=== PATIENT | male | born 1940 | race Caucasian/White ===

== ENCOUNTER 2023-04-17 02:13 | Inpatient (IN) ==
--- NOTE | 2023-04-17 02:23 | EKG ---
Test Reason : SHORT OF BREATH Blood Pressure : */* mmHG Vent. Rate : 98 BPM Atrial Rate : 98 BPM P-R Int : 210 ms QRS Dur : 86 ms QT Int : 352 ms P-R-T Axes : 79 18 72 degrees QTc Int : 449 ms Sinus rhythm with 1st degree AV block Anterior infarct , age undetermined Abnormal ECG No previous ECGs available Confirmed by Gilberto Black ([id number]) on 04/17/2023 8:38:38 AM Referred By: Confirmed By: Gilberto Black
[2023-04-17 02:29] VITALS: BMI 25.2
--- NOTE | 2023-04-17 02:47 | DR.SOBA ---
HPI Time Seen Time Seen by Provider: 04/17/23 02:44 Primary Care Physician Primary Care Physician: JIE Hartman Chief Complaint Doctors Comments: SOB THAT HAS GOTTEN WORSE OVER PAST 2 DAYS.QUIT SMOKING 15 YEARS AGO. Chief Complaint:: PT IN ED VIA STRETCHER PER [facility] WITH C/O SHORTNESS OF BREATH AND GETTING WORSE FOR A COUPLE OF PRIOR TO ARRIVAL. PT COUGHING UP WHITE SPUTUM. RALES NOTED WITH PERIPHERAL EDEMA. COVID-19 Coronavirus risk:travel/contact w/high risk person: No Has patient experienced Coronavirus symptoms: No Source History Provided: Patient Mode of Arrival Mode of Arrival: Stretcher Timing Onset of Chief Complaint: 04/17/23 PMH PMH Past Medical History: Yes Past Medical History: Arthritis, Asthma, COPD, Dyslipidemia and Hypertension Past Medical History Comment: BLOCKED CAROTID ARTERIES Past Surgical History: Yes Surgical History: Ortho Surgery Past Surgical History Comment: RIGHT ARM Family History History of Family Medical Conditions: Yes Family Medical History: Cancer Social History Does patient currently use any type of tobacco product: No Have you used tobacco products in the last 12 months: No Type of Tobacco Use: None Does any household member use tobacco: No Alcohol Use: None Do you use any recreational Drugs:: No Lives With: Spouse Lives Where: Home Travel Risk Coronavirus risk:travel/contact w/high risk person: No Has patient experienced Coronavirus symptoms: No Infectious screening In the last 2 months have you had wt loss of >10#?: NO Have you had fever, night sweats or hemotysis?: No Have you traveled outside the country in the last 6 months?: No Isolation: Standard ROS Review of Systems Constitutional: Other (SOB) Eyes: No Symptoms Reported ENTM: No Symptoms Reported Respiratoy: Non-Productive Cough and Short of Breath Cardiovascular: No Symptoms Reported Gastrointestinal/Abdominal: No Symptoms Reported Genitourinary: No Symptoms Reported Neurological: No Symptoms Reported Musculoskeletal: No Symptoms Reported Integumentary: No Symptoms Reported Hematologic/Lymphatic: No Symptoms Reported Endocrine: No Symptoms Reported Psychiatric: No Symptoms Reported PE Vital Signs Vitals: Temperature 98.2 F Pulse Rate 95 Pulse Rate 88 Respiratory Rate 25 Respiratory Rate 14 Blood Pressure 183/83 Blood Pressure 174/80 O2 Sat by Pulse Oximetry 92 O2 Sat by Pulse Oximetry 93 General Limitations: No Limitations General Appearance: In Distress (MILD DISTRESS) Head Head Exam: Normal Inspection, Atraumatic and Normocephalic Eyes Eye exam: Normal Appearance, PERRL and EOMI ENT ENT Exam: Normal Exam, Normal Oropharynx and Normal External Ear Exam Neck Neck Exam: Normal Inspection, Full ROM and Trachea Midline Chest Chest Inspection: Normal Inspection and Symmetric Chest Wall Rise Respiratory Respiratory Exam: Other (WHEEZING) Respiratory Exam: Bilateral: Wheezing Cardiovascular Cardiovascular Exam: Regular Rate and Normal Rhythm Abdominal Exam Abdominal Exam: Normal Inspection and Normal Bowel Sounds Extremities Extremities Exam: Normal Inspection and Full ROM Back Back Exam: Normal Inspection Neurologic Neurological Exam: Alert, Oriented X3 and CN II-XII Intact Psychiatric Psychiatric Exam: Normal Affect and Normal Mood Skin Skin Exam: Warm MDM Differential Diagnosis Differential Diagnosis: CHF, COPD and URI COURSE Treatment Treatment: PATIENT WAS RELATIVELY STABLE DURING ER EVALUATION AND TREATMENT. HAD TO BE MAINTAINED ON O2 AT 4L/MIN TO MAINTAIN AN O2 SAT OF 95%. HAD ABG THAT SHOWED P02 OF 46 AND 02SAT OF 84% ON ROOM AIR. PATIENT HAD CHEST XRAY THAT SOME HYPERINFLATION WITHOUT INFILTRATE. INTENT IS TO ADMIT PATIENT FOR COPD EXACERBATION. PATIENT WAS ALSO GIVEN A DUONEB AND SOLUMEDROL 125MG IV IN ER. SPOKE TO DR CERON AT 0456 WILL ACEPT THE PATIENT TO ADMISSION FOR COPD EXACERBATION.UTILIZATION REVIEW WAS CALLED ANT PATIENT WAS TO BE ADMITTED. ROR Labs Reviewed Laboratory Results Reviewed?: Yes Result Diagrams: 04/17/23 02:38 04/17/23 02:38 Laboratory: WBC 13.3 X10^3/uL (3.6-10.0) H 04/17/23 02:38 RBC 4.49 X10^6/uL (4.7-6.0) L 04/17/23 02:38 Hgb 13.6 g/dL (13.5-18.0) 04/17/23 02:38 Hct 39.5 % (42.0-54.0) L 04/17/23 02:38 MCV 87.9 fL (80.0-100.0) 04/17/23 02:38 MCH 30.3 pg (27.0-34.0) 04/17/23 02:38 MCHC 34.5 g/dL (33.0-35.0) 04/17/23 02:38 RDW 13.4 % (11.6-16.5) 04/17/23 02:38 Plt Count 220 X10^3/uL (150.0-450.0) 04/17/23 02:38 MPV 8.2 fL (7.4-11.0) 04/17/23 02:38 Neut % (Auto) 79.9 % (42.0-75.0) H 04/17/23 02:38 Lymph % (Auto) 9.9 % (21.0-51.0) L 04/17/23 02:38 [place] % (Auto) 6.6 % (0.0-13.0) 04/17/23 02:38 Eos % (Auto) 2.5 % (0.9-2.9) 04/17/23 02:38 Baso % (Auto) 1.1 % (0.2-1.0) H 04/17/23 02:38 Neut # (Auto) 10.6 x10^3/uL (2.2-4.8) H 04/17/23 02:38 Lymph # (Auto) 1.3 X10^3/uL (1.3-2.9) 04/17/23 02:38 [place] # (Auto) 0.9 x10^3/uL (0.3-0.8) H 04/17/23 02:38 Eos # (Auto) 0.3 x10^3/uL (0.0-0.2) H 04/17/23 02:38 Baso # (Auto) 0.1 X10^3/uL (0.0-0.1) 04/17/23 02:38 Absolute Nucleated RBC 0.0 /100WBC 04/17/23 02:38 PT 13.5 SECONDS (11.8-14.3) 04/17/23 02:38 INR Target Range - 04/17/23 02:38 INR 1.05 (0.8-1.3) 04/17/23 02:38 APTT 27.6 SECONDS (22.9-36.5) 04/17/23 02:38 PTT Comment - 04/17/23 02:38 D-Dimer 0.57 ug/ml (0.0-0.57) 04/17/23 02:38 Sample Site R rad 04/17/23 03:15 ABG pH 7.450 (7.35-7.45) 04/17/23 03:15 ABG pCO2 35.0 mmHg (35.0-45.0) 04/17/23 03:15 ABG pO2 46.0 mmHg (80.0-100.0) L* 04/17/23 03:15 ABG HCO3 24.3 mmol/L (22-26) 04/17/23 03:15 ABG O2 Saturation 84.0 % (90-100) L* 04/17/23 03:15 ABG Base Excess 0.6 mmol/L (-2.0-2.0) 04/17/23 03:15 Ariel Test Pos 04/17/23 03:15 A-a Gradient 60.0 mmHg 04/17/23 03:15 FiO2 21.0 04/17/23 03:15 Blood Gas Comments Kiah well signal inspector 04/17/23 03:15 Sodium 144 mmol/L (136-145) 04/17/23 02:38 Corrected Sodium 145 mmol/L (136-145) 04/17/23 02:38 Potassium 3.8 mmol/L (3.5-5.1) 04/17/23 02:38 Chloride 106 mmol/L (98-107) 04/17/23 02:38 Carbon Dioxide 25.8 mmol/L (21-32) 04/17/23 02:38 BUN 16 mg/dL (7-18) 04/17/23 02:38 Creatinine 1.16 mg/dL (0.70-1.30) 04/17/23 02:38 Est GFR (MDRD) Af Amer > 60 (>60) 04/17/23 02:38 Est GFR (MDRD) Non-Af > 60 (>60) 04/17/23 02:38 Glucose 132 mg/dL (65-99) H 04/17/23 02:38 Calcium 8.6 mg/dL (8.5-10.1) 04/17/23 02:38 Corrected Calcium TNP 04/17/23 02:38 Total Bilirubin 0.60 mg/dL (0.2-1.0) 04/17/23 02:38 AST 22 Units/L (15-37) 04/17/23 02:38 ALT 37 Units/L (12-78) 04/17/23 02:38 Alkaline Phosphatase 81 Units/L (46-116) 04/17/23 02:38 Creatine Kinase 100 Units/L (39-308) 04/17/23 02:38 Troponin I High Sens 7.7 ng/L (4.0-60.0) 04/17/23 02:38 B-Natriuretic Peptide 9.2 pg/mL (0-79) 04/17/23 02:38 Total Protein 7.2 g/dL (6.4-8.2) 04/17/23 02:38 Albumin 4.0 g/dL (3.4-5.0) 04/17/23 02:38 Globulin 3.2 g/dL (2.5-4.5) 04/17/23 02:38 Albumin/Globulin Ratio 1.3 Ratio (1.1-2.1) 04/17/23 02:38 SARS-CoV-2 (PCR) Negative (NEGATIVE) 04/17/23 02:57 Influenza Type A (PCR) Negative (NEGATIVE) 04/17/23 02:57 Influenza Type B (PCR) Negative (NEGATIVE) 04/17/23 02:57 RSV (PCR) Negative (NEGATIVE) 04/17/23 02:57 Opioid Opioid Risk Tool Age (Rayshawn box if 16-45): No History of Preadolescent Sexual Abuse: No Total: 0 Total Score Risk Category: Low Risk Copyright: Chad SUMNER predicting aberrant behaviors Discharge Plan Diagnosis Discharge Problem: Acute exacerbation of chronic obstructive pulmonary disease, Dyspnea Discharge Plan Patient Disposition: 09 ADMITTED INPATIENT Condition: Stable Prescriptions: No Action atorvastatin 40 mg Tablet 40 mg PO QHS albuterol sulfate 2.5 mg /3 mL (0.083 %) Solution For Nebulization 2.5 mg INHALATION Q4H PRN meloxicam 15 mg Tablet 15 mg PO QDAY clopidogrel [Plavix] 75 mg Tablet 75 mg PO QDAY nifedipine 90 mg Tablet Extended Release 24hr 90 mg PO QDAY lisinopril 40 mg Tablet 40 mg PO QDAY Health Concerns: Post Hospitalization: new medications and changes needed to prevent readmission or further decline. Pt educated and given instructions on all concerns. Plan of Treatment: Continue with present treatment and follow up plan. Pt is to keep follow up appointment as instructed and take medications as ordered. Orders to Discharge Patient Discharge Orders: Transfer (Routine); Ordered 04/17/23 Ordered By: Saravanan Leal Follow ups/Referrals Follow ups/Referrals: Cyrus Ceron [Primary Care Provider] - 3 days
[2023-04-17 03:00] LABS: BASOPHILS # (AUTO) 0.1 X10^3/uL (0.0-0.1); BASOPHILS % (AUTO) 1.1 % (0.2-1.0); EOSINOPHILS # (AUTO) 0.3 x10^3/uL (0.0-0.2); EOSINOPHILS % (AUTO) 2.5 % (0.9-2.9); HEMATOCRIT 39.5 % (42.0-54.0); HEMOGLOBIN 13.6 g/dL (13.5-18.0); LYMPHOCYTES # (AUTO) 1.3 X10^3/uL (1.3-2.9); LYMPHOCYTES % (AUTO) 9.9 % (21.0-51.0); MEAN CORPUSCULAR HEMOGLOBIN 30.3 pg (27.0-34.0); MEAN CORPUSCULAR HGB CONC 34.5 g/dL (33.0-35.0); MEAN CORPUSCULAR VOLUME 87.9 fL (80.0-100.0); MEAN PLATELET VOLUME 8.2 fL (7.4-11.0); MONOCYTES # (AUTO) 0.9 x10^3/uL (0.3-0.8); MONOCYTES % (AUTO) 6.6 % (0.0-13.0); NEUTROPHILS # (AUTO) 10.6 x10^3/uL (2.2-4.8); NEUTROPHILS % (AUTO) 79.9 % (42.0-75.0); PLATELET COUNT 220 X10^3/uL (150.0-450.0); RED BLOOD COUNT 4.49 X10^6/uL (4.7-6.0); RED CELL DISTRIBUTION WIDTH 13.4 % (11.6-16.5); WHITE BLOOD COUNT 13.3 X10^3/uL (3.6-10.0)
[2023-04-17 03:03] LABS: INR 1.05 (0.8-1.3)
[2023-04-17 03:09] LABS: ALANINE AMINOTRANSFERASE 37 Units/L (12-78); ALKALINE PHOSPHATASE 81 Units/L (46-116); ASPARTATE AMINO TRANSFERASE 22 Units/L (15-37); BLOOD UREA NITROGEN 16 mg/dL (7-18); CALCIUM 8.6 mg/dL (8.5-10.1); CARBON DIOXIDE 25.8 mmol/L (21-32); CHLORIDE 106 mmol/L (98-107); COR NA(FOR HYPERGLY) 145 mmol/L (136-145); CREATINE KINASE 100 Units/L (39-308); CREATININE 1.16 mg/dL (0.70-1.30); GLUCOSE 132 mg/dL (65-99); POTASSIUM 3.8 mmol/L (3.5-5.1); SODIUM 144 mmol/L (136-145); TOTAL PROTEIN 7.2 g/dL (6.4-8.2); eGFR NON BLACK RACES > 60 (>60)
[2023-04-17 03:21] LABS: ABG BASE EXCESS 0.6 mmol/L (-2.0-2.0); ABG HCO3 24.3 mmol/L (22-26)
[2023-04-17 03:23] LABS: ABG ALLEN TEST POS
[2023-04-17] MEDS ORDERED: DUONEB 0.5 MG/3 MG (3 mL) NEB ONE ×3 (03:56→07:58)
[2023-04-17] MEDS ORDERED: SOLU-Medrol 125 MG VIAL IVP ONE (03:57)
[2023-04-17] MEDS ORDERED: SOLU-Medrol 125 MG VIAL ONE (03:57)
[2023-04-17] MEDS ORDERED: D5 1/2 NS + KCL 20 MEQ/L 1,000 ML IV SCH (06:00)
[2023-04-17] MEDS ORDERED: DUONEB 0.5 MG/3 MG (3 mL) NEB SCH (06:00)
[2023-04-17] MEDS ORDERED: PULMICORT NEB TX 0.5 MG NEB ONE (07:58)
[2023-04-17] MEDS: PULMICORT NEB TX 0.5 MG NEB SCH ×2 (08:05→21:00)
[2023-04-17] MEDS: DUONEB 0.5 MG/3 MG (3 mL) NEB SCH ×4 (08:05→21:00)
[2023-04-17] MEDS ORDERED: NIFEDIPINE 90 MG PO SCH (09:00)
[2023-04-17] MEDS ORDERED: SOLU-Medrol 40 MG VIAL IVP SCH (09:00)
[2023-04-17] MEDS: PROCARDIA XL PO SCH (09:01)
[2023-04-17] MEDS: LEVAQUIN PREMIX IV 500 MG 500 MG/100 ML BAG IV SCH (11:25)
[2023-04-17] MEDS ORDERED: NS 100 ML IV 100 ML ONE ×2 (11:27→20:36)
[2023-04-17] MEDS ORDERED: FORTAZ or TAZICEF VIAL INJ ONE (11:27)
[2023-04-17] MEDS: ZESTRIL TAB 40 MG PO SCH (11:29)
[2023-04-17] MEDS: MOBIC TAB 15 MG PO SCH (11:29)
[2023-04-17] MEDS: PLAVIX PO SCH (11:29)
[2023-04-17] MEDS: FORTAZ or TAZICEF VIAL INJ 1 G in NS 100 ML IV + SPIKE MINIBAG* 100 ML IV SCH ×3 (12:32→21:38)
[2023-04-17] MEDS: SOLU-Medrol 40 MG VIAL IVP SCH ×2 (16:43→21:40)
--- NOTE | 2023-04-17 21:30 | DR.H&P ---
H&P - History & Physical for Day of: H&P Date: 04/17/23 - Chief Complaint Chief Complaint: SHORTNESS OF BREATH, COUGH - History of Present Illness History of Present Illness: IS A 82 YEAR OLD PATIENT OF OURS. HE PRESENED TO THE ER WITH COMPLAINTS OF SHORTNESS OF BREATH. HE REPORTS THAT SHORTNESS OF BREATH STARTED TWO DAYS AGO AND HAS PROGRESSIVELY GOTTEN WORSE. HE ALSO REPORTS A COUGH THAT HAS BEEN PRODUCTIVE OF WHITE SPUTUM AND LOWER EXTREMITY SWELLING. HE DENIES FEVER. HIS PMH INCLUDES: ARTHRITIS, ASTHMA, COPD, DYSLIPIDEMA, HTN, AND CAD. ON ARRIVAL, PATIENT APPEARTED TO BE IN MILD RESPIRATORY DISTRESS. AUSCULTATION OF LUNG FORTE REVEALED SCATTERED WHEEZING. HIS VITALS ON ARRIVAL WERE: 98.2-88-14-88%-174/80. HE WAS PLACED ON OXYGEN VIA NASAL CANNULA AT 2 LPM. SATURATIONS INCREASED TO 94%. LABS WERE OBTAINED. WBC 13.3, RBC 4.49, HGB 13.6, HCT 39.5, PLT COUNT 220, PT 13.5, INR 1.05, D-DIMER 0.57, SODIUM 144, POTASSIUM 3.8, CHLORIDE 106, CARBON DIOXIDE 25.8, BUN 16, CREATININE 1.16, GLUCOSE 132, CALCIUM 8.6, TOTAL BILI 0.60, AST 22, ALT 37, ALK PHOS 81, CREATINE KINASE 100, TROPONIN 7.7, BNP 9.2, TOTAL PROTEIN 7.2, ALBUMIN 4.0. COVID, INFLUENZA, AND RSV NEGATIVE. ABG REVEALED: PH 7.450, PC02 35, P02 36, HC03 24.3, 02 SAT 84, FI02 21.0. EKG REVEALED: SINUS RHYTHM WITH 1ST DEGREE AV BLOCK. HR 98 BPM. IN THE ER, HE WAS GIVEN A DUONEB X 1, SOLU-MEDROL 125MG IV X 1 DOSE. HE WAS ADMITTED TO THE HOSPITAL FOR FURTHER EVALUATION AND TREATMENT OF COPD EXACERBATION WITH ACUTE BRONCHITIS, HYPOXIA, DYSPNEA. HE WAS STARTED ON FORTAZ 1G IV Q8H, LEVAQUIN 500MG IV DAILY, SOLU-MEDROL 80MG IV Q8H, DUONEBS Q4H, PULMICORT NEBS BID. HIS HOME MEDICATIONS OF LIPITOR, PLAVIX, ZESTRIL, MOBIC, PROCARDIA, AND RESTORIL WERE RESUMED. WE WILL OBTAIN SPUTUM CULTURES. OTHERWISE, WE PLAN TO FOLLOW-UP WITH AM LABS AND CHEST XRAY AND CONTINUE TO MONITOR. TIME SPENT ON CLINICAL ASSESSMENT, REVIEWING LABS AND IMAGING, DECISION MAKING, AND DOCUMENTATION GREATER THAN 75 MINUTES. - Past Medical History Past Medical History: Hypertension, Dyslipidemia, COPD, Asthma, Arthritis - Past Surgical History Surgical History: Ortho Surgery - Family History Family Medical History: Diabetes Mellitus - Social History Does patient currently use any type of tobacco product: No Have you used tobacco products in the last 12 months: No Type of Tobacco Use: None How many years tobacco product used: 50 Does any household member use tobacco: No Alcohol Use: None Drug Use: None - Medications Home Medications: Home Medications Medication Instructions Recorded Confirmed Type albuterol sulfate 2.5 mg/3 mL 2.5 mg inhalation Q4H PRN 04/17/23 04/17/23 History (0.083 %) solution for nebulization atorvastatin 40 mg tablet 40 mg PO QHS 04/17/23 04/17/23 History clopidogrel 75 mg tablet (Plavix) 75 mg PO QDAY 04/17/23 04/17/23 History lisinopril 40 mg tablet 40 mg PO QDAY 04/17/23 04/17/23 History meloxicam 15 mg tablet 15 mg PO QDAY 04/17/23 04/17/23 History nifedipine 90 mg tablet,extended 90 mg PO QDAY 04/17/23 04/17/23 History release 24 hr - Review of Systems Constitutional: Weakness Eyes: No Symptoms Reported ENT: No Symptoms Reported Respiratory: Cough, Shortness of Breath, SOB with Excertion Cardiovascular: No Symptoms Reported Gastrointestinal: No Symptoms Reported Genitourinary: No Symptoms Reported Musculoskeletal: No Symptoms Reported Skin: No Symptoms Reported Neurological: No Symptoms Reported - Physical Exam Vital Signs: Temperature 98.6 F Temperature 98.2 F Pulse Rate [Left Brachial] 108 Pulse Rate 90 Pulse Rate 88 Respiratory Rate 22 Respiratory Rate 14 Blood Pressure [Left Arm] 165/76 Blood Pressure 183/83 Blood Pressure 174/80 O2 Sat by Pulse Oximetry 93 O2 Sat by Pulse Oximetry 93 Oriented: Normal Eyes: Normal Ear: Normal Nose: Normal Throat: Normal Respiratory: Wheezes Throughout Cardiovascular: Normal : Normal Auscultation: Bowel Sounds: Normal Palpation: Normal Tenderness: Normal Skin: Normal Musculoskeletal: Normal Psychiatric: Normal Affect: Normal Speech Pattern: Clear - Assessment/Plan (1) Acute exacerbation of chronic obstructive pulmonary disease Status: Acute Plan: ADMIT, SUPPLEMENTAL OXYGEN, FORTAZ 1G IV Q8H, LEVAQUIN 500MG IV DAILY, SOLU-MEDROL 80MG IV Q8H, DUONEBS Q4H, PULMICORT NEBS BID. RESUME HOME MEDS (2) Acute bronchitis Qualifiers: Bronchitis organism: unspecified organism Qualified Code(s): J20.9 - Acute bronchitis, unspecified Status: Acute (3) Dyspnea Qualifiers: Dyspnea type: unspecified Qualified Code(s): R06.00 - Dyspnea, unspecified Status: Acute (4) HTN (hypertension) Qualifiers: Hypertension type: primary hypertension Qualified Code(s): I10 - Essential (primary) hypertension Status: Acute Plan: RESUME PROCARDIA AND ZESTRIL (5) CAD (coronary artery disease) Qualifiers: Coronary Disease-Associated Artery/Lesion type: [place] artery [place] vs. transplanted heart: [place] heart Associated angina: unspecified whether angina present Qualified Code(s): I25.10 - Atherosclerotic heart disease of [place] coronary artery without angina pectoris Status: Acute Plan: RESUME PLAVIX (6) Dyslipidemia Status: Acute Plan: RESUME LIPITOR - Allergies Allergies/Adverse Reactions: Allergies Allergy/AdvReac Type Severity Reaction Status Date / Time No Known Allergies Allergy Verified 04/17/23 02:31
[2023-04-17] MEDS: RESTORIL CAP 15 MG PO PRN (21:36)
[2023-04-17] MEDS: LIPITOR TAB 40 MG PO SCH (21:36)
[2023-04-18] MEDS: DUONEB 0.5 MG/3 MG (3 mL) NEB SCH ×7 (01:04→23:23)
[2023-04-18] MEDS ORDERED: NS 100 ML IV 100 ML ONE (05:14)
[2023-04-18] MEDS: FORTAZ or TAZICEF VIAL INJ 1 G in NS 100 ML IV + SPIKE MINIBAG* 100 ML IV SCH (05:29)
[2023-04-18] MEDS: SOLU-Medrol 40 MG VIAL IVP SCH ×3 (05:29→21:20)
[2023-04-18 05:31] LABS: BASOPHILS % (AUTO) 0.1 % (0.2-1.0); HEMATOCRIT 37.5 % (42.0-54.0); HEMOGLOBIN 12.9 g/dL (13.5-18.0); LYMPHOCYTES # (AUTO) 0.7 X10^3/uL (1.3-2.9); LYMPHOCYTES % (AUTO) 3.4 % (21.0-51.0); MEAN CORPUSCULAR HEMOGLOBIN 30.6 pg (27.0-34.0); MEAN CORPUSCULAR HGB CONC 34.4 g/dL (33.0-35.0); MEAN CORPUSCULAR VOLUME 88.8 fL (80.0-100.0); MEAN PLATELET VOLUME 8.4 fL (7.4-11.0); MONOCYTES # (AUTO) 0.4 x10^3/uL (0.3-0.8); MONOCYTES % (AUTO) 1.7 % (0.0-13.0); NEUTROPHILS # (AUTO) 19.4 x10^3/uL (2.2-4.8); NEUTROPHILS % (AUTO) 94.8 % (42.0-75.0); PLATELET COUNT 224 X10^3/uL (150.0-450.0); RED BLOOD COUNT 4.22 X10^6/uL (4.7-6.0); RED CELL DISTRIBUTION WIDTH 13.5 % (11.6-16.5); WHITE BLOOD COUNT 20.5 X10^3/uL (3.6-10.0)
[2023-04-18 05:50] LABS: ALANINE AMINOTRANSFERASE 33 Units/L (12-78); ALBUMIN 3.6 g/dL (3.4-5.0); ALKALINE PHOSPHATASE 73 Units/L (46-116); ASPARTATE AMINO TRANSFERASE 19 Units/L (15-37); BLOOD UREA NITROGEN 23 mg/dL (7-18); CALCIUM 8.7 mg/dL (8.5-10.1); CARBON DIOXIDE 25.1 mmol/L (21-32); CHLORIDE 107 mmol/L (98-107); COR NA(FOR HYPERGLY) 143 mmol/L (136-145); CREATININE 1.15 mg/dL (0.70-1.30); GLUCOSE 159 mg/dL (65-99); POTASSIUM 4.1 mmol/L (3.5-5.1); SODIUM 142 mmol/L (136-145); TOTAL PROTEIN 6.8 g/dL (6.4-8.2); eGFR NON BLACK RACES > 60 (>60)
[2023-04-18 06:00] LABS: PLATELET MORPHOLOGY COMMENT NORMAL (NORMAL)
--- NOTE | 2023-04-18 07:09 | RAD ---
HISTORYShortness of breathSTUDYSingle-view chestCOMPARISONNoneFINDINGSThe trachea is midline. The cardiac silhouette is unremarkable . The lungs are clear without focal infiltrate or effusion. The bony thorax is unremarkable.IMPRESSIONNo acute cardiopulmonary disease.Electronically signed by: LUCIO CARIAS (Apr 18, 2023 07:08:23)
[2023-04-18] MEDS: PULMICORT NEB TX 0.5 MG NEB SCH (08:10)
[2023-04-18] MEDS: LEVAQUIN PREMIX IV 500 MG 500 MG/100 ML BAG IV SCH (09:38)
[2023-04-18] MEDS: PLAVIX PO SCH (09:38)
[2023-04-18] MEDS: PROCARDIA XL PO SCH (09:38)
[2023-04-18] MEDS: ZESTRIL TAB 40 MG PO SCH (09:38)
[2023-04-18] MEDS: MOBIC TAB 15 MG PO SCH (09:38)
--- NOTE | 2023-04-18 10:12 | PCM.PROG ---
Progress Note - Progress Note for Day of Date of Exam: 04/18/23 - Subjective Subjective: IS CURRENTLY INPATIENT STATUS FOR TREATMENT OF COPD EXACERBATION WITH ACUTE BRONCHITIS, HYPOXIA, AND DYSPNEA. HE HAS A PMH OF HTN, CAD, AND DYSLIPIDEMIA. TODAY, HE IS ALERT AND ORIENTED, SITTING UP ON THE SIDE OF THE BED ON MORNING ROUNDS. HE CONTINUES TO COMPLAIN OF SHORTNESS OF BREATH AND COUGH, BUT DOES ADMIT TO SLIGHT IMPROVEMENT SINCE ADMISSION. ON EXAMINATION, HE IS SLIGHTLY TACHYCARDIC WITH HR 100-110 BPM. BILATERAL LUNGS ARE NOTED WITH SCATTERED WHEEZING. ABDOMEN IS ROUND, SOFT, AND NON-TENDER WITH NORMAL BOWEL SOUNDS NOTED IN ALL QUADRANTS. GOOD MOVEMENT NOTE TO UPPER AND LOWER EXTREMITIES WITH NO EDEMA NOTED. HIS VITALS THIS MORNING ARE: 98.6-106-22-94%-139/67. HE IS CURRENTLY USING OXYGEN VIA NASAL CANNULA AT 3 LPM. LABS WERE OBTAINED. WBC 20.5, RBC 4.22, HGB 12.9, HCT 37.5, PLT COUNT 224, SODIUM 142, POTASSIUM 4.1, CHLORIDE 107, CARBON DIOXIDE 25.1, BUN 23, CREATININE 1.15, GLUCOSE 159, CALCIUM 8.7, AST 19, ALT 33, ALK PHOS 73, TOTAL PROTEIN 6.8, ALBUMIN 3.6. HE IS CURRENTLY RECEIVING FORTAZ 1G IV Q8H, LEVAQUIN 500MG IV DAILY, SOLU-MEDROL 80MG IV Q8H, DUONEBS Q4H, PULMICORT NEBS BID. HIS HOME MEDICATIONS OF LIPITOR, PLAVIX, ZESTRIL, MOBIC, PROCARDIA, AND RESTORIL WERE RESUMED. WE WILL DECREASE HIS SOLU- MEDROL TO 40MG IV Q8H. OTHERWISE, WE WILL CONTINUE WITH CURRENT PLAN OF CARE. WE PLAN TO FOLLOW-UP WITH AM LABS AND CHEST XRAY AND CONTINUE TO MONITOR. TIME SPENT ON CLINICAL ASSESSMENT, REVIWING LABS AND IMAGING, DECISION MAKING, AND DOCUMENTATION GREATER THAN 45 MINUTES. - Past Medical Family Social History Past Med/Fam/Surg Hx: No changes since H&P Allergies: Allergies No Known Allergies Allergy (Verified 04/17/23 02:31) - Review of Systems ROS: No change since H&P - Vital Signs and I&O's Vital Signs: Temperature 98.6 F Temperature 98.2 F Pulse Rate [Left Brachial] 106 Pulse Rate 97 Pulse Rate 88 Respiratory Rate 22 Respiratory Rate 14 Blood Pressure [Left Arm] 139/67 Blood Pressure 183/83 Blood Pressure 174/80 O2 Sat by Pulse Oximetry 91 O2 Sat by Pulse Oximetry 93 Intake and Output: Intake & Output 04/15/23 04/16/23 04/17/23 04/18/23 11:59 11:59 11:59 11:59 Intake Total 2002 Balance 2002 - Physical Exam Oriented: Normal Eyes: Normal Ear: Normal Nose: Normal Throat: Normal Respiratory: Wheezes Cardiovascular: Tachycardia : Normal Auscultation: Bowel Sounds: Normal Palpation: Normal Tenderness: Normal Skin: Normal Musculoskeletal: Normal Psychiatric: Normal Affect: Normal Speech Pattern: Clear, Appropriate - Laboratory and Diagnostics Result Diagrams: 04/18/23 04:41 04/18/23 04:41 Labs: Laboratory WBC 20.5 X10^3/uL (3.6-10.0) H 04/18/23 04:41 RBC 4.22 X10^6/uL (4.7-6.0) L 04/18/23 04:41 Hgb 12.9 g/dL (13.5-18.0) L 04/18/23 04:41 Hct 37.5 % (42.0-54.0) L 04/18/23 04:41 MCV 88.8 fL (80.0-100.0) 04/18/23 04:41 MCH 30.6 pg (27.0-34.0) 04/18/23 04:41 MCHC 34.4 g/dL (33.0-35.0) 04/18/23 04:41 RDW 13.5 % (11.6-16.5) 04/18/23 04:41 Plt Count 224 X10^3/uL (150.0-450.0) 04/18/23 04:41 Plt Count Comment Adequate (ADEQUATE) 04/18/23 04:41 MPV 8.4 fL (7.4-11.0) 04/18/23 04:41 Neut % (Auto) 94.8 % (42.0-75.0) H 04/18/23 04:41 Lymph % (Auto) 3.4 % (21.0-51.0) L 04/18/23 04:41 [place] % (Auto) 1.7 % (0.0-13.0) 04/18/23 04:41 Eos % (Auto) 0.0 % (0.9-2.9) L 04/18/23 04:41 Baso % (Auto) 0.1 % (0.2-1.0) L 04/18/23 04:41 Neut # (Auto) 19.4 x10^3/uL (2.2-4.8) H 04/18/23 04:41 Lymph # (Auto) 0.7 X10^3/uL (1.3-2.9) L 04/18/23 04:41 [place] # (Auto) 0.4 x10^3/uL (0.3-0.8) 04/18/23 04:41 Eos # (Auto) 0.0 x10^3/uL (0.0-0.2) 04/18/23 04:41 Baso # (Auto) 0.0 X10^3/uL (0.0-0.1) 04/18/23 04:41 Absolute Nucleated RBC 0.0 /100WBC 04/18/23 04:41 Total Counted 100 04/18/23 04:41 Neutrophils % (Manual) 90 % (39-76) H 04/18/23 04:41 Lymphocytes % (Manual) 6 % (13-43) L 04/18/23 04:41 Monocytes % (Manual) 4 % (4-9) 04/18/23 04:41 Plt Morphology Comment Normal (NORMAL) 04/18/23 04:41 RBC Morphology Normal (NORMAL) 04/18/23 04:41 PT 13.5 SECONDS (11.8-14.3) 04/17/23 02:38 INR Target Range - 04/17/23 02:38 INR 1.05 (0.8-1.3) 04/17/23 02:38 APTT 27.6 SECONDS (22.9-36.5) 04/17/23 02:38 PTT Comment - 04/17/23 02:38 D-Dimer 0.57 ug/ml (0.0-0.57) 04/17/23 02:38 Sample Site R rad 04/17/23 03:15 ABG pH 7.450 (7.35-7.45) 04/17/23 03:15 ABG pCO2 35.0 mmHg (35.0-45.0) 04/17/23 03:15 ABG pO2 46.0 mmHg (80.0-100.0) L* 04/17/23 03:15 ABG HCO3 24.3 mmol/L (22-26) 04/17/23 03:15 ABG O2 Saturation 84.0 % (90-100) L* 04/17/23 03:15 ABG Base Excess 0.6 mmol/L (-2.0-2.0) 04/17/23 03:15 Ariel Test Pos 04/17/23 03:15 A-a Gradient 60.0 mmHg 04/17/23 03:15 FiO2 21.0 04/17/23 03:15 Blood Gas Comments Kiah well radio news anchor 04/17/23 03:15 Sodium 142 mmol/L (136-145) 04/18/23 04:41 Corrected Sodium 143 mmol/L (136-145) 04/18/23 04:41 Potassium 4.1 mmol/L (3.5-5.1) 04/18/23 04:41 Chloride 107 mmol/L (98-107) 04/18/23 04:41 Carbon Dioxide 25.1 mmol/L (21-32) 04/18/23 04:41 BUN 23 mg/dL (7-18) H 04/18/23 04:41 Creatinine 1.15 mg/dL (0.70-1.30) 04/18/23 04:41 Est GFR (MDRD) Af Amer > 60 (>60) 04/18/23 04:41 Est GFR (MDRD) Non-Af > 60 (>60) 04/18/23 04:41 Glucose 159 mg/dL (65-99) H 04/18/23 04:41 Calcium 8.7 mg/dL (8.5-10.1) 04/18/23 04:41 Corrected Calcium TNP 04/18/23 04:41 Total Bilirubin 0.40 mg/dL (0.2-1.0) 04/18/23 04:41 AST 19 Units/L (15-37) 04/18/23 04:41 ALT 33 Units/L (12-78) 04/18/23 04:41 Alkaline Phosphatase 73 Units/L (46-116) 04/18/23 04:41 Creatine Kinase 100 Units/L (39-308) 04/17/23 02:38 Troponin I High Sens 7.7 ng/L (4.0-60.0) 04/17/23 02:38 B-Natriuretic Peptide 9.2 pg/mL (0-79) 04/17/23 02:38 Total Protein 6.8 g/dL (6.4-8.2) 04/18/23 04:41 Albumin 3.6 g/dL (3.4-5.0) 04/18/23 04:41 Globulin 3.2 g/dL (2.5-4.5) 04/18/23 04:41 Albumin/Globulin Ratio 1.1 Ratio (1.1-2.1) 04/18/23 04:41 SARS-CoV-2 (PCR) Negative (NEGATIVE) 04/17/23 02:57 Influenza Type A (PCR) Negative (NEGATIVE) 04/17/23 02:57 Influenza Type B (PCR) Negative (NEGATIVE) 04/17/23 02:57 RSV (PCR) Negative (NEGATIVE) 04/17/23 02:57 - Plan (1) Acute exacerbation of chronic obstructive pulmonary disease Status: Acute Plan: SUPPLEMENTAL OXYGEN, FORTAZ 1G IV Q8H, LEVAQUIN 500MG IV DAILY, SOLU- MEDROL 40MG IV Q8H, DUONEBS Q4H, PULMICORT NEBS BID. RESUME HOME MEDS (2) Acute bronchitis Status: Acute Qualifiers: Bronchitis organism: unspecified organism Qualified Code(s): J20.9 - Acute bronchitis, unspecified (3) Dyspnea Status: Acute Qualifiers: Dyspnea type: unspecified Qualified Code(s): R06.00 - Dyspnea, unspecified (4) HTN (hypertension) Status: Acute Qualifiers: Hypertension type: primary hypertension Qualified Code(s): I10 - Essential (primary) hypertension Plan: RESUME PROCARDIA AND ZESTRIL (5) CAD (coronary artery disease) Status: Acute Qualifiers: Coronary Disease-Associated Artery/Lesion type: [place] artery [place] vs. transplanted heart: [place] heart Associated angina: unspecified whether angina present Qualified Code(s): I25.10 - Atherosclerotic heart disease of [place] coronary artery without angina pectoris Plan: RESUME PLAVIX (6) Dyslipidemia Status: Acute Plan: RESUME LIPITOR
[2023-04-18] MEDS: FORTAZ or TAZICEF VIAL INJ 1 G in NS 100 ML IV 100 ML IV SCH ×2 (13:46→21:19)
[2023-04-18] MEDS: LIPITOR TAB 40 MG PO SCH (21:19)
[2023-04-18] MEDS: RESTORIL CAP 15 MG PO PRN (21:31)
[2023-04-19] MEDS: SOLU-Medrol 40 MG VIAL IVP SCH ×2 (02:51→09:46)
[2023-04-19] MEDS: FORTAZ or TAZICEF VIAL INJ 1 G in NS 100 ML IV 100 ML IV SCH (05:10)
[2023-04-19 05:22] LABS: BASOPHILS % (AUTO) 0.1 % (0.2-1.0); HEMATOCRIT 38.5 % (42.0-54.0); HEMOGLOBIN 13.2 g/dL (13.5-18.0); LYMPHOCYTES # (AUTO) 1.1 X10^3/uL (1.3-2.9); LYMPHOCYTES % (AUTO) 4.6 % (21.0-51.0); MEAN CORPUSCULAR HEMOGLOBIN 30.8 pg (27.0-34.0); MEAN CORPUSCULAR HGB CONC 34.2 g/dL (33.0-35.0); MEAN PLATELET VOLUME 8.7 fL (7.4-11.0); MONOCYTES # (AUTO) 0.9 x10^3/uL (0.3-0.8); NEUTROPHILS # (AUTO) 21.6 x10^3/uL (2.2-4.8); NEUTROPHILS % (AUTO) 91.3 % (42.0-75.0); PLATELET COUNT 241 X10^3/uL (150.0-450.0); RED BLOOD COUNT 4.28 X10^6/uL (4.7-6.0); WHITE BLOOD COUNT 23.6 X10^3/uL (3.6-10.0)
[2023-04-19 05:41] LABS: ALANINE AMINOTRANSFERASE 41 Units/L (12-78); ALBUMIN 3.5 g/dL (3.4-5.0); ALKALINE PHOSPHATASE 81 Units/L (46-116); ASPARTATE AMINO TRANSFERASE 26 Units/L (15-37); BLOOD UREA NITROGEN 36 mg/dL (7-18); CALCIUM 8.6 mg/dL (8.5-10.1); CARBON DIOXIDE 24.9 mmol/L (21-32); CHLORIDE 110 mmol/L (98-107); COR NA(FOR HYPERGLY) 146 mmol/L (136-145); CREATININE 1.36 mg/dL (0.70-1.30); GLUCOSE 153 mg/dL (65-99); SODIUM 145 mmol/L (136-145); TOTAL PROTEIN 6.7 g/dL (6.4-8.2); eGFR NON BLACK RACES 53 (>60)
[2023-04-19 05:53] LABS: BAND NEUTROPHILS % 1 % (0-10); PLATELET MORPHOLOGY COMMENT NORMAL (NORMAL)
[2023-04-19] MEDS: DUONEB 0.5 MG/3 MG (3 mL) NEB SCH ×3 (06:05→09:28)
[2023-04-19] MEDS ORDERED: LEVAQUIN PREMIX IV 250 MG 250 MG/50 ML BAG IV SCH (09:00)
[2023-04-19] MEDS ORDERED: LOVENOX INJ 40 MG SYR SC SCH (09:00)
--- NOTE | 2023-04-19 09:18 | RAD ---
HISTORYShortness of breath and COPDSTUDYCHEST, 1 [id number]/03/2023FINDINGSThe trachea is midline. The cardiac silhouette is unremarkable . The lungs are clear without focal infiltrate or effusion. The bony thorax is unremarkable.IMPRESSIONNo acute cardiopulmonary disease.Electronically signed by: LUCIO CARIAS (Apr 19, 2023 09:16:38)
[2023-04-19] MEDS: ZESTRIL TAB 40 MG PO SCH (09:46)
[2023-04-19] MEDS: PLAVIX PO SCH (09:46)
[2023-04-19] MEDS: PROCARDIA XL PO SCH (09:46)
[2023-04-19] MEDS: MOBIC TAB 15 MG PO SCH (09:46)
[2023-04-19 12:25] VITALS: BP 149/65; PULSE 125; TEMP 97.8; O2SAT 96
[2023-04-19] MEDS ORDERED: FORTAZ or TAZICEF VIAL INJ 1 G in NS 100 ML IV 100 ML IV SCH (21:00)
== END 2023-04-19 13:23 | disposition home or self-care (01) | DRG 192 ==
LOC: ER 02:13 → MED/SURG 05:03
PROVIDERS: ADMIT Internal Medicine; ATTEND Internal Medicine
DX: J20.8 Acute bronchitis due to other specified organisms; R94.31 Abnormal electrocardiogram [ECG] [EKG]; Z66 Do not resuscitate; J44.1 Chronic obstructive pulmonary disease with (acute) exacerbation; Z79.01 Long term (current) use of anticoagulants; E78.2 Mixed hyperlipidemia; Z20.822 Contact with and (suspected) exposure to COVID-19; R06.02 Shortness of breath; I25.10 Atherosclerotic heart disease of native coronary artery without angina pectoris; I10 Essential (primary) hypertension